=== PATIENT | female | born 1990 | race Caucasian/White ===

== ENCOUNTER 2017-01-27 00:02 | Emergency (ER) | payer MEDICAID ==
[2017-01-27 00:37] LABS: URINE BACTERIA 1+ /hpf (NONE SEEN); URINE BILIRUBIN NEGATIVE (NEGATIVE); URINE BLOOD TRACE (NEGATIVE); URINE COLOR YELLOW; URINE EPITHELIAL CELLS MANY /lpf (FEW); URINE GLUCOSE (UA) NEGATIVE (NEGATIVE); URINE KETONE NEGATIVE (NEGATIVE); URINE PROTEIN NEGATIVE (NEGATIVE); URINE RBC 0-2 /hpf (0-5); URINE UROBILINOGEN 0.2 E.U./dL (0.2 - 1.0)
--- NOTE | 2017-01-27 00:47 | ED Physician Chart ---
Chief Complaint/HPI - Patient Information Date Seen:: 01/27/17 Time Seen:: 00:30 Chief Complaint:: headaches History of Present Illness:: Patient has been having intermittent headaches for the last 3 weeks. The headaches are bifrontal and bitemporal. These of the worst headaches patient that she has ever had. Patient states her headache now is mild but her friend who is accompanying her says that sometimes her headaches are very severe. Her headaches have been of gradual onset. Patient has a rather flat affect although she is very polite. When asked if she is sad or depressed at this time she agrees that she is and when asked why she states that she misses her son whom she does not have custody of. She states she is on probation for a domestic violence situation. Patient thinks she's had a fever but did not take her temperature. Allergies:: Allergies Allergy/AdvReac Type Severity Reaction Status Date / Time No Known Allergies Allergy Verified 01/27/17 00:10 Vitals:: Vital Signs - 8 hr 01/27/17 00:05 Temp 98.3 F HR 75 RR 18 BP 116/79 O2 Sat % 100 Historian:: Patient, Friend Review:: Nurse's Note Reviewed, Old Chart Reviewed Review of Systems - Review of Systems General/Constitutional: Fever, No chills Skin: No skin lesions Head: Headache Eyes: No loss of vision ENT: No earache Neck: No neck pain Cardio Vascular: No chest pain, No palpitations Pulmonary: No SOB GI: No nausea, No vomiting G/U: No dysuria, No frequency Musculoskeletal: No bone or joint pain Endocrine: No polyuria Psychiatric: No prior psych history Hematopoietic: No bruising Allergic/Immuno: No urticaria Neurological: No syncope, Headache Family Medical History - Family Member Mother Ethnicity: Labs/Radiology/EKG Results - Lab Results Results: Laboratory Tests 01/27/17 01/27/17 00:10 00:10 Urine Source RANDOM Urine Color YELLOW Urine Clarity HAZY Urine pH 6.0 Ur Specific [place] 1.010 Urine Protein NEGATIVE Urine Glucose (UA) NEGATIVE Urine Ketones NEGATIVE Urine Blood TRACE Urine Nitrate NEGATIVE Urine Bilirubin NEGATIVE Urine Urobilinogen 0.2 Ur Leukocyte Esterase TRACE H Urine RBC 0-2 Urine WBC 6-10 H Ur Epithelial Cells MANY Urine Bacteria 1+ H Urine Test NEGATIVE Assessment - Assessment General Assessment: Patient refused the Imitrex because she stated her headache and already improved a lot without medication. ED Septic Shock - . Is Septic Shock (SBP<90, OR Lactate>4 mmol\L) present?: No - <6hrs of presentation: Vital Signs: Vital Signs - 8 hr 01/27/17 00:05 Temp 98.3 F HR 75 RR 18 BP 116/79 O2 Sat % 100 Reassessment (Disposition) - Reassessment Reassessment Condition:: Improved - Diagnosis Diagnosis:: Headache possibly migraine - Aftercare/Follow up Instructions Aftercare/Follow-Up Instructions:: Refer to Discharge Instructions Medication Prescribed:: Imitrex 100 mg #9 to take 1/2-1 daily as necessary - Patient Disposition Discharge/Transfer:: Home Condition at Disposition:: Stable, Improved
== END 2017-01-27 01:00 | disposition home or self-care (01) ==
LOC: ER 00:02
DX: R51 Headache (principal)
CPT/HCPCS: 81001-TC; 81025-TC; Z7502